=== PATIENT | female | born 1940 ===

== ENCOUNTER 2025-05-14 14:11 | Outpatient (AMB) | payer MEDICAID, SELFPAY ==
--- NOTE | 2025-05-14 14:15 | MHC.OFFVIS ---
Intake Visit Reasons: 6m Knife Machine Operator Required: Yes Knife Machine Operator Services: Knife Machine Operator Offered & Declined (daughter to translate) Accompanied by: Daughter Allergies No Known Allergies Allergy (Verified 05/14/25 14:17) Medication List - Last Reconciled 05/14/25 by Halie Erickson CNP amantadine HCl 100 mg orally 1 tab in morning and 1 tab at noon; 90 days aspirin 81 mg PO DAILY atorvastatin 10 mg PO DAILY carbidopa-levodopa 25-100 mg (Sinemet) 2 tabs PO TID 90 days gabapentin 300 mg PO BEDTIME lisinopril 20 mg PO DAILY omeprazole 20 mg PO DAILY pramipexole 0.25 mg PO TID 90 days sennosides-docusate sodium 8.6-50 mg (Senexon-S) 1 tab PO DAILY PRN HPI Comments Details: 85-year-old [place] woman with a diagnosis of Parkinson disease and REM sleep behavior disorder. She was doing okay. Tremors were about the same, some days better than others. No difficulty eating, drinking, or swallowing. She was taking gabapentin 300mg 2-3x/week as medication made her drowsy the next day. She had nightmares and was fighting in her sleep occasionally on the days she did not take the medication. She was walking with cane, no falls. Review of Systems Const Denies chills, Denies daytime sleepiness, Denies difficulty sleeping, Denies fatigue, Denies fever(s), Denies frequent falls, Denies headache(s), Denies increased appetite, Denies poor appetite, Denies snoring, Denies weakness, Denies weight gain and Denies weight loss Eyes Denies loss of vision ENT Denies vertigo, Denies dizziness and Denies headache(s) Card Denies chest pain at rest, Denies chest pain with activity, Denies syncope, Denies leg edema and Denies palpitations Resp Denies snoring GI Denies constipation, Denies heartburn, Denies diarrhea and Denies nausea Denies urinary frequency, Denies urinary incontinence and Denies urinary urgency Musc Reports abnormal gait (balance difficulty), Denies numbness and Denies tingling Skin/Breast Denies dry skin and Denies rash Neuro Reports abnormal gait (balance difficulty), Denies vertigo, Denies dizziness, Denies syncope, Denies frequent falls, Denies headache(s), Denies lack of coordination, Denies loss of vision, Denies memory loss, Denies numbness, Denies restless legs, Denies seizure-like activity, Denies tingling, Denies paresthesias, Reports tremor(s) and Denies weakness Psych Reports anxiety, Denies depression, Denies auditory hallucinations, Denies memory loss, Denies visual hallucinations and Denies suicidal ideation Endo Denies fatigue and Denies palpitations Physical Exam Const Other: General Appearance:? normal, in no acute distress. Skin:? no rashes, no significant birthmarks. Heart:? S1, S2 normal, no murmurs. Lungs:? clear anteriorly and posteriorly. Extremities:? no edema. Psych:? alert, cooperative with exam. Neuro Other: Mental Status:?Alert and awake with normal sp speech, fluency, and affect. Cranial Nerves:?Pupils are equal, round and reactive to light. External occular muscles are intact. Visual mccabe are full. Face is symmetrical. Facial sensations are normal. Tongue is midline. Palate elevates symmetrically. Shoulder shrugging is normal. Hearing to bedside conversation is normal. Sensory Exam:?....? Coordination:?No ataxia,?no titubation.? Gait Exam: Cautious gait with reduced arm swing on left side, with cane. Cerebellar Signs:?[id number] is okay. Extrapyramidal System: Jaw tremor and hand tremor, L > R. Mild intermittent tremor of legs. Mild cogwheeling on left. Pronator Drift:?Not present.? Involuntary Movements:?Jaw tremor. Speech:?Normal.? Assessment & Plan Assessment & Plan (1) Parkinsonism: Code(s): G20 - Parkinson's disease Category: Medical Qualifiers: Parkinsonism type: unspecified Qualified Code(s): G20 - Parkinson's disease Plan: Continue carbidopa-levodopa 25-100mg 2 tablets three times a day. Continue pramipexole 0.25mg 1 tablet three times a day. Continue amantadine 100mg 1 tablet twice a day (morning and noontime). (2) REM sleep behavior disorder: Code(s): G47.52 - REM sleep behavior disorder Category: Medical Plan: Decrease gabapentin 100mg 1 capsule at bedtime. She was drowsy in the morning with gabapentin 300mg at bedtime and dose was reduced. Medications: New gabapentin 100 mg PO BEDTIME 90 caps 0RF 90 days Coding Level of Care Code Est Pt Level 4 (06516) Diagnoses Parkinsonism, unspecified Parkinsonism type G20 Parkinsonism type: unspecified REM sleep behavior disorder G47.52
== END 2025-05-14 14:47 | disposition home or self-care (01) ==
LOC: HO.HSM 14:11
PROVIDERS: PCP Internal Medicine; Referring Provider Internal Medicine; Visit Provider Registered Nurse
DX: G20.C Parkinsonism, unspecified (principal); G47.52 REM sleep behavior disorder
CPT/HCPCS: 99214

== ENCOUNTER → 2025-05-14 14:11 | Outpatient (BNVA) | payer MEDICAID, SELFPAY | PROVIDERS: PCP Internal Medicine; Referring Provider Internal Medicine; Visit Provider Registered Nurse | DX: G20.C Parkinsonism, unspecified (principal); G47.52 REM sleep behavior disorder | CPT/HCPCS: 99212 ==